=== PATIENT | male | born 1955 | race Caucasian/White ===

== ENCOUNTER 2016-07-04 20:53 | Emergency (ER) | payer OTHER | END 2016-07-04 22:28 | disposition home or self-care (01) | DX: M54.2 Cervicalgia (principal); M25.512 Pain in left shoulder; I10 Essential (primary) hypertension ==

== ENCOUNTER 2019-12-01 13:07 | Emergency (ER) | payer OTHER ==
[2019-12-01] MEDS ORDERED: HYDROcod/ACETAM 5/325 MG TABLET PO STA (13:24)
--- NOTE | 2019-12-01 13:27 | ED Physician Documentation ---
PD HPI LOWER EXT INJURY - Stated complaint Stated Complaint: RT ANKLE INJURY - Chief complaint Chief Complaint: Ext Problem - History obtained from History obtained from: Patient - History of Present Illness PD HPI LOW EXT INJURY LOCATION: Right, Ankle Type of injury: Fall (Twisted his foot falling off a deck wrong just prior to arrival. Injured his right ankle. He can walk.) Review of Systems Constitutional: reports: Reviewed and negative Throat: reports: Reviewed and negative Cardiac: reports: Reviewed and negative PD PAST MEDICAL HISTORY - Past Medical History Cardiovascular: Hypertension, High cholesterol Respiratory: None Endocrine/Autoimmune: None - Past Surgical History Past Surgical History: Yes General: Appendectomy Ortho: Spine surgery - Present Medications Home Medications: Ambulatory Orders Medication Instructions Recorded Confirmed Bupropion HCl [Wellbutrin Xl] 300 mg PO DAILY 08/22/13 07/04/16 Simvastatin 40 mg PO HS 08/22/13 07/04/16 Trazodone HCl 100 mg HS 08/22/13 07/04/16 Losartan [Cozaar] 05/13/18 Hydrocodone/Acetaminophen 1 - 2 each PO Q6H PRN #14 tablet 12/01/19 [Hydrocodon-Acetaminophen 5-325] - Allergies Allergies/Adverse Reactions: Allergies Allergy/AdvReac Type Severity Reaction Status Date / Time No Known Drug Allergies Allergy Verified 05/13/18 13:50 - Social History Does the pt smoke?: No Smoking Status: Never smoker Does the pt drink ETOH?: Yes Does the pt have substance abuse?: No - Immunizations Immunizations are current?: Yes - POLST Patient has POLST: No PD ED PE NORMAL - Vitals Vital signs reviewed: Yes - General General: Alert and oriented X 3, No acute distress - Extremities Extremities: Other (Mild TTP Lat Mall, more ATFL TTP, no foot TTP. No prox fibular TTP.) - Neuro Neuro: Alert and oriented X 3, Normal speech - Psych Psych: Normal mood, Normal affect Results - Vitals Vitals: Vital Signs - 24 hr 12/01/19 12/01/19 13:10 14:00 Temperature 36.2 C L Heart Rate 74 84 Respiratory 16 17 Rate Blood Pressure 140/80 H 154/87 H O2 Saturation 98 96 Oxygen O2 Source Room air - Rads (name of study) R ankle 3v Radiology: EMP read contemporaneously (no frx) PD MEDICAL DECISION MAKING - ED course ED course: 64-year-old gentleman presents with an apparent ankle sprain, no fracture on x- ray. Placed in an Aircast and given some pain medication. He declined a work note. Departure - Departure Disposition: 01 Home, Self Care Clinical Impression: Right ankle sprain Qualifiers: Encounter type: initial encounter Involved ligament of ankle: deltoid ligament Qualified Code(s): S93.421A - Sprain of deltoid ligament of right ankle, initial encounter Condition: Good Record reviewed to determine appropriate education?: Yes Instructions: ED Sprain Ankle Prescriptions: Hydrocodone/Acetaminophen [Hydrocodon-Acetaminophen 5-325] 1 - 2 each PO Q6H PRN #14 tablet PRN Reason: pain Comments: Wear the Aircast when up and about for a week or 2, follow-up with your doctor in a week to assess healing. Return for new or worsening symptoms. Do not drink or drive while taking narcotic pain medication. Note that many narcotic pain relievers also contain Tylenol/acetaminophen. Please ensure that your total dose of acetaminophen from all sources does not exceed 3 g (3000 mg) per day. You may get constipated while on this medication. Take a stool softener such as Colace twice a day while you are on it. Also add an susq-lam-[id number] laxative such as senna or MiraLAX on any day that you do not have a bowel movement. If you received a narcotic pain medication or sedative while in the emergency department, do not drive for the next 24 hours. Discharge Date/Time: 12/01/19 14:05
--- NOTE | 2019-12-01 13:42 | XRAY Report ---
PROCEDURE: Ankle 3 View RT INDICATIONS: ankle inj TECHNIQUE: 3 views of the ankle were acquired. COMPARISON: None FINDINGS: Bones: No fractures or dislocations. Slight widening of lateral ankle mortise is seen concerning for low-grade syndesmotic injury.. Osteoarthritic changes are noted in tibiotalar joint. No suspicious bony lesions. Soft tissues: Mild ankle soft tissue swelling is seen. No tibiotalar joint effusion. Achilles tendo n appears normal. IMPRESSION: No acute ankle fracture or dislocation. Mild ankle soft tissue swelling. Ankle joint ost eoarthritis. Concern for low-grade distal tibiofibular syndesmotic injury. Reviewed by: Iftikhar Adams MD on 12/01/2019 1:41 PM PDT Approved by: Iftikhar Adams MD on 12/01/2019 1:41 PM PDT Station ID: [id number]
[2019-12-01 14:07] VITALS: BP 154/87
== END 2019-12-01 14:05 | disposition home or self-care (01) ==
LOC: ED 13:07
DX: S93.421A Sprain of deltoid ligament of right ankle, initial encounter (principal); W13.8XXA Fall from, out of or through other building or structure, initial encounter; I10 Essential (primary) hypertension
CPT/HCPCS: 73610; 99283; A9270

== ENCOUNTER 2022-08-10 12:00 | Outpatient (CLI) | payer OTHER | END 2022-08-10 12:01 | disposition home or self-care (01) | LOC: LAB.R 12:00 | PROVIDERS: ATTEND Family Medicine | DX: R19.7 Diarrhea, unspecified (principal) | CPT/HCPCS: 83993; 87045; 87046; 87427; 87493 ==

== ENCOUNTER 2023-08-13 14:38 | Outpatient (CLI) | payer OTHER ==
[2023-08-13 18:19] LABS: ALBUMIN 4.8 g/dL (3.2-5.5); BILIRUBIN,DIRECT 0.1 mg/dL (0.03-0.18); BILIRUBIN,TOTAL 0.6 mg/dL (0.2-1.0)
== END 2023-08-13 14:39 | disposition home or self-care (01) ==
LOC: LAB.N 14:38
PROVIDERS: ATTEND Podiatrist Foot & Ankle Surgery
DX: B35.1 Tinea unguium (principal)
CPT/HCPCS: 36415; 80076

== ENCOUNTER 2023-09-02 13:47 | Emergency (ER) | payer OTHER ==
[2023-09-02 14:30] LABS: BILIRUBIN,URINE NEGATIVE (NEGATIVE); GLUCOSE, URINE (UA) 100 mg/dL (NEGATIVE); KETONES,URINE (UA) TRACE mg/dL (NEGATIVE); LEUKOCYTE ESTERASE, URINE NEGATIVE (NEGATIVE); NITRITE,URINE NEGATIVE (NEGATIVE); OCCULT BLOOD,URINE NEGATIVE (NEGATIVE); PH,URINE 5.5 PH (5.0-7.5); PROTEIN,URINE NEGATIVE (NEGATIVE); UROBILINOGEN,URINE 0.2 (NORMAL) E.U./dL (NORMAL)
[2023-09-02 14:36] LABS: CLARITY,URINE CLEAR (CLEAR)
[2023-09-02 14:38] LABS: BASOPHILS % (AUTO) 0.4 %; EOSINOPHILS % (AUTO) 0.6 %; HCT - HEMATOCRIT 50.1 % (42.0-52.0); HGB - HEMOGLOBIN 16.4 g/dL (14.0-18.0); LYMPHOCYTES # (AUTO) 1.6 10^3/uL (1.5-3.5); LYMPHOCYTES % (AUTO) 23.1 %; MEAN CORPUSCULAR HEMOGLOBIN 30.9 pg (27.0-31.0); MEAN CORPUSCULAR HGB CONC 32.7 g/dL (32.0-36.0); MEAN CORPUSCULAR VOLUME 94.5 fL (80.0-94.0); MEAN PLATELET VOLUME 9.1 fL (7.4-11.4); MONOCYTES # (AUTO) 0.4 10^3/uL (0.0-1.0); MONOCYTES % (AUTO) 5.2 %; NEUTROPHILS % (AUTO) 70.6 %; PLT - PLATELET COUNT 217 10^3/uL (130-450); RED CELL DISTRIBUTION WIDTH 12.4 % (12.0-15.0); WHITE BLOOD COUNT 7.1 x10^3/uL (4.8-10.8)
[2023-09-02 14:55] LABS: ALBUMIN 4.7 g/dL (3.2-5.5); BILIRUBIN,TOTAL 0.6 mg/dL (0.2-1.0); CALCIUM 10.1 mg/dL (8.5-10.3); TOTAL PROTEIN 7.1 g/dL (6.4-8.9)
--- NOTE | 2023-09-02 15:10 | CT Report ---
PROCEDURE: Abdomen/Pelvis WO INDICATIONS: flank pain TECHNIQUE: A CT scan of the abdomen and pelvis was performed without the use of intravenous contrast. Images we re recorded and evaluated at appropriate window settings. Reformats: coronal and sagittal. For radiat ion dose reduction, the following was used: automated exposure control, adjustment of mA and/or kV ac cording to patient size. COMPARISON: None. FINDINGS: Image quality: Diagnostic. Lower chest: Unremarkable. Liver: Subcentimeter ill-defined low-attenuation foci. They are too small to definitively characteriz e secondary to size as well as lack of contrast.. The liver measures 18.9 cm with steatosis. Gallbladder and biliary tree: Unremarkable Spleen: No splenomegaly. Pancreas: No pancreatic ductal dilation. Adrenals: No adrenal nodule. Kidneys and ureters: No hydronephrosis. No renal cystic lesion which requires follow up. No solid mas s. Simple right renal cyst. Stomach, bowel and peritoneum: No bowel distension. No pathologic free fluid. Mild hiatal hernia. Div erticuli without visualized inflammatory change. Lymph nodes: No central or retroperitoneal adenopathy. Vessels: No infrarenal aortic aneurysm. PELVIS Reproductive organs: Prostate gland is enlarged with calcifications. Bladder: No wall thickness, accounting for underdistention. Pelvic lymph nodes: No pelvic adenopathy by size criteria. Bones: Focus of sclerosis is present within the left transverse process at L3. Similar punctate area is present in the left inferior pubic ramus.. Other: Small bilateral fat-containing inguinal hernias. IMPRESSION: No hydronephrosis or obstructing renal stone. Diverticulosis. Indeterminate hepatic foci possibly small cysts or hemangiomas. Reviewed by: Holly Olivera MD on 09/02/2023 3:09 PM PDT Approved by: Holly Olivera MD on 09/02/2023 3:09 PM PDT Station ID: [id number]
--- NOTE | 2023-09-02 15:23 | ED Physician Documentation ---
PD HPI ABD PAIN - Stated complaint Stated Complaint: RT FLANK PX,NAUSEA - Chief complaint Chief Complaint: Abd Pain - History obtained from History obtained from: Patient - History of Present Illness Timing - onset: How many days ago (3) Timing - duration: Days (3) Timing - details: Gradual onset, Still present (worsened over initial day or so and has persisted despit NSAIDs and redst.) Quality: Aching, Pain Location: Other (right lower back) Radiation: Lower back. No: Chest, Right flank Improved by: Laying still Worsened by: Moving, Position. No: Breathing, Palpation Associated symptoms: Diarrhea. No: Fever, Nausea, Vomiting, Constipation, Dysuria Recently seen: Clinic (Walk In earlier today and referred to ER after getting Toradol injection.) Review of Systems Constitutional: denies: Fever, Chills, Myalgias Cardiac: denies: Chest pain / pressure Respiratory: denies: Dyspnea GI: reports: Nausea. denies: Vomiting, Diarrhea Skin: denies: Rash, Lesions PD PAST MEDICAL HISTORY - Past Medical History Past Medical History: Yes Cardiovascular: Hypertension, High cholesterol Respiratory: None Endocrine/Autoimmune: None Musculoskeletal: Chronic back pain - Past Surgical History Past Surgical History: Yes General: Appendectomy Ortho: Spine surgery - Present Medications Home Medications: Ambulatory Orders Medication Instructions Recorded Confirmed Simvastatin 20 mg PO HS 08/22/13 09/02/23 Trazodone HCl 50 mg PO HS 08/22/13 09/02/23 buPROPion HCL [Wellbutrin Xl] 300 mg PO DAILY 08/22/13 09/02/23 Losartan [Cozaar] 100 mg PO DAILY 05/13/18 09/02/23 HYDROcod/ACETAM 5/325 [[place] 5/325] 1 ea PO Q6H PRN #18 tablet 09/02/23 Pantoprazole [Protonix] 40 mg PO DAILY 09/02/23 09/02/23 metFORMIN [Glucophage] 1,500 mg PO DAILY 09/02/23 09/02/23 tiZANidine [Zanaflex] 4 mg PO Q8H PRN #25 tablet 09/02/23 - Allergies Allergies/Adverse Reactions: Allergies Allergy/AdvReac Type Severity Reaction Status Date / Time No Known Drug Allergies Allergy Verified 09/02/23 13:53 - Social History Does the pt smoke?: No Smoking Status: Never smoker Does the pt drink ETOH?: Yes Does the pt have substance abuse?: No - Immunizations Immunizations are current?: Yes Immunizations: TDAP >10years/unknown - POLST Patient has POLST: No PD ED PE NORMAL - Vitals Vital signs reviewed: Yes - General General: Alert and oriented X 3, Well developed/nourished - Cardiac Cardiac: RRR, No murmur - Respiratory Respiratory: No respiratory distress, Clear bilaterally - Abdomen Abdomen: Soft, Non tender, Non distended - Male Male : Deferred - Rectal Rectal: Deferred - Back Back: No CVA TTP, No spinal TTP, Other (tender right lparalumbar muscles and upper SI joint area. positive focal trigger point noted at iliac crest/ upper SI area.) - Derm Derm: Normal color, Warm and dry, No rash Results - Vitals Vitals: Oxygen O2 Source Room air - Labs Labs: Laboratory Tests 09/02/23 09/02/23 09/02/23 14:18 14:33 14:33 WBC 7.1 RBC 5.30 Hgb 16.4 Hct 50.1 MCV 94.5 H MCH 30.9 MCHC 32.7 RDW 12.4 Plt Count 217 MPV 9.1 Neut # (Auto) 5.0 Lymph # (Auto) 1.6 [place] # (Auto) 0.4 Eos # (Auto) 0.0 Baso # (Auto) 0.0 Absolute Nucleated RBC 0.00 Nucleated RBC % 0.0 Sodium 136 Potassium 4.0 Chloride 101 Carbon Dioxide 30 Anion Gap 5.0 L BUN 16 Creatinine 1.0 Estimated GFR (MDRD) 75 L Glucose 162 H Calcium 10.1 Total Bilirubin 0.6 AST 28 ALT 44 Alkaline Phosphatase 55 Total Protein 7.1 Albumin 4.7 Globulin 2.4 Albumin/Globulin Ratio 2.0 Urine Color DARK YELLOW Urine Clarity CLEAR Urine pH 5.5 Ur Specific [place] >=1.030 H Urine Protein NEGATIVE Urine Glucose (UA) 100 H Urine Ketones TRACE Urine Occult Blood NEGATIVE Urine Nitrite NEGATIVE Urine Bilirubin NEGATIVE Urine Urobilinogen 0.2 (NORMAL) Ur Leukocyte Esterase NEGATIVE Ur Microscopic Review NOT INDICATED Urine Culture Comments NOT INDICATED - Rads (name of study) abd/pelvic CT Relevant Findings:: Prelim report reviewed, EMP independent interpretation of test (no kidney stones, no acute process to account for the pain. diverticulosis without diverticulitis. ) PD Medical Decision Making - ED course Complexity details: reviewed results (normal labs and CT scan without finding confirmed cause of pain. Location and character seen muscular. No sciatic syptoms. ), re-evaluated patient (feeling improved with some meds here. ), considered differential (has had few days of right low badk pain without injury nor abrupt onset. Not really in kidney area. Seen at Walk In and sent to ED for CT for concern of that.), d/w patient ED course: on exam of lower back subsequently there is a focal area that causes the most pain in iliac crest area just at upper SI. Shared discussion to do a trigger point injection there with Ron and Lidsudheer. Was helping some but not significantly on discharge. I would not expect more than some at this point, so does suggest to me though that the injection was properly located. Departure - Departure Disposition: 01 Home, Self Care Clinical Impression: Acute low back pain Qualifiers: Back pain laterality: right Sciatica presence: without sciatica Qualified Code(s): M54.50 - Low back pain, unspecified Condition: Stable Record reviewed to determine appropriate education?: Yes Instructions: ED Low Back Pain Injury Follow-Up: CATHERINE SCHAEFER MD [Primary Care Provider] - Prescriptions: HYDROcod/ACETAM 5/325 [[place] 5/325] 1 ea PO Q6H PRN #18 tablet PRN Reason: Pain tiZANidine [Zanaflex] 4 mg PO Q8H PRN #25 tablet PRN Reason: Spasms Comments: This sounds likely to be muscular low back pain given the pain with movement and tenderness in the muscle area. Your CT scan did not show any signs of intra- abdominal nor kidney process. In particular no kidney stones, gallbladder abnormality or intestinal problems such as diverticulitis etc. Your urine is clear without any signs of infection. I would suggest continuing your ibuprofen/acetaminophen. I would increase to 3 tablets at a time 3 times a day. To that you can add tizanidine muscle relaxant 3 times daily if needed for spasms and stiffness. Topical medication such as lidocaine patch may be helpful as well. 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 Add hydrocodone/acetaminophen every 4-6 hours if needed for worse pain. I sent your prescriptions to the [facility] pharmacy at your direction. I would anticipate improvement in this over the next several days and resolved over a week or so. He gentle stretching and topical treatments are good. I am prescribing a short course of narcotic pain medication for you. These are potentially dangerous and addictive medications that should be used carefully. These medications may constipate you. Take an sloa-upz-kreflkp stool softener such as docusate twice daily with plenty of water while taking these medic ations. If you go 24 hours without a bowel movement, take [id number] MiraLAX, per package instructions. Do not drink or drive while taking these medications. If you received narcotic or sedating medications while in the emergency department do not drive for 24 hours. Store this medication in a safe, secure place and out of reach of children. It is a violation of federal law to give or sell this medication to another person or to use in a manner other than prescribed. The ED will not refill narcotic prescriptions, including prescriptions lost or stolen. You can dispose of unwanted medications at the [facility]'s office or at several pharmacies such as [email or web address]. Forms: PCP List Discharge Date/Time: 09/02/23 16:24
[2023-09-02] MEDS: TRIAMCINOLONE 40 MG/ML VIAL MC STA (15:51)
[2023-09-02 16:24] VITALS: BP 141/79; O2SAT 95
== END 2023-09-02 16:24 | disposition home or self-care (01) ==
LOC: ED 13:47
DX: M54.50 Low back pain, unspecified (principal); I10 Essential (primary) hypertension
CPT/HCPCS: 36415; 80053; 81001; 81003; 85025; 87086; 99284